=== PATIENT | male | born 1965 | race Caucasian/White ===

== ENCOUNTER 2016-11-04 17:38 | Emergency (ER) | payer OTHER ==
[~2016-11-04] VITALS: Ht 182.9 cm; Wt 125.0 kg
[2016-11-04 17:55] VITALS: BP 141/72; PULSE 79; RESP 16; O2SAT 94
[2016-11-04 21:07] VITALS: BP 128/78; PULSE 70; O2SAT 93
--- NOTE | 2016-11-04 21:52 | ED.REPORT ---
HPI-Back Pain 40 and Over Date of Service Nov 04, 2016 ED Provider: Neil Rodríguez MD Patient is a 50 year old male with a history of scoliosis, PTSD and depression presents the ED with lower left back pain rated 9/10 that began at 0516 after he had lifted his right leg to get into his truck. He describes the initial pain as originating in his right thigh and shooting up into his spine. The pain is now located only in his back with no radiation. He admits to exacerbated of pain with movement as well as sitting for extended periods and has taken Tylenol for the pain. The patient denies fever, numbness/weakness and any bowel or urinary dysfunction. pt has a history of similar which improves with physical therapy and time. Nursing Notes Stated Complaint: LOWER BACK PAIN Chief Complaint: Back Pain or Injury Nursing Notes Reviewed: Yes Allergies: Coded Allergies: No Known Allergies (Unverified , 11/04/16) Scheduled PRN Cyclobenzaprine (Cyclobenzaprine) 10 Mg Tablet 10 MG PO TID PRN PRN Spasm Ibuprofen (Ibuprofen) 600 Mg Tablet 600 MG PO QID PRN PRN For Pain General Time Seen by MD: 21:16 Chief Complaint Back pain Hx Obtained From: Patient Arrived By: Walk-in Sudden in Onset?: Yes Onset Occurred: 13 - 16 hours ago Symptom Duration: Since onset Caused by: Bending Location: : Perispinal lumbar Quality: Painful Severity: Maximum: Moderate Associated with: Denies: Incontinence bladder, Incontinence bowel Exacerbated by: Bending, Movement, Twisting Past Medical History Past Medical History Scoliosis, PTSD, depression Past Surgical History Reports: Appendectomy Smoking History Never Smoker Social History Alcohol Use: Denies alcohol use Drug Use: Denies drug use Other Social History: Good social support Ambulatory Status Independent Review of Systems Constitutional: Denies: Fever Respiratory: Denies: Shortness of breath Cardiovascular: Denies: Chest pain Musculoskeletal: Reports: Back pain Neurologic: Denies: Bladder dysfunction, Bowel dysfunction, Numbness, Weakness Complete sys rev & neg: except as marked. Physical Exam Initial Vital Signs Vital Signs (First) Date Time Temp Pulse Resp B/P Pulse Ox O2 Delivery O2 Flow Rate FiO2 11/04/16 17:55 36.3 79 16 141/72 94 Room Air Initial VS: Reviewed Head / Eyes: Atraumatic, Normocephalic, PERRL ENT: Mucous membranes moist, Conjunctiva normal, No scleral icterus Neck: Supple, Non-tender, Full range of motion Extremities: Vascular intact, Neuro intact, No swelling, No tenderness Skin: Warm, Dry, No cyanosis Psychiatric: Mood/affect normal, Behavior normal, Normal thought content General/Constitutional: Awake, Alert Respiratory / Chest: No respiratory distress Cardiovascular: Peripheral circulation NL Back: Atraumatic Paraspinous spasm R sacrum Neurologic: Oriented X3, Speech NL, No motor deficits, No sensory deficits Re-Eval/Medical Decision Med Decision/Clinical Course Recurrent back pain, no red flags, exam reassuring. Given toradol and flexeril in ED Re-Evaluation/Progress : Re-Evaluation/Progress Note: Discussed plan for discharge and follow up. All questions addressed. Counseled Regarding: Diagnosis, Need for follow-up Discharge & Departure Impression: Primary Impression: Lumbosacral strain Encounter type: initial encounter Qualified Code: S39.012A - Strain of muscle, fascia and tendon of lower back, initial encounter Disposition: Home Discharge Condition All VS Reviewed: Yes Condition: Stable Patient Instructions: Low Back Strain (ED) Additional Instructions: Your emergency room visit today included interview and examination. I do not believe that there is a dangerous cause for your symptoms. You can take Cyclobenzaprine for muscle spasm. Starting tomorrow you can take Ibuprofen 600mg every 6 hours for pain. Ice to sore areas. Activities as tolerated. Contact the [facility] for follow up. Return to the ER for loss of bowel or bladder function, numbness or weakness. Referrals: [facility] (PCP) Scribe Attestation Portions of this note were transcribed by Sumaya Johns. I, ( Dr. Rodríguez) personally performed the history, physical exam and medical decision- making; I reviewed and confirmed the accuracy of the information in the transcribed note. Signed by: Sumaya Johns. Scribe, 11/04/2016 , [id number] copies to: [facility] Neil Rodríguez MD Nov 04, 2016 21:52 Sumaya Toth Nov 04, 2016 22:03 Ricardo Johns Nov 04, 2016 22:20
[2016-11-04] MEDS ORDERED: CYCL10TA9 PO (22:28)
[2016-11-04] MEDS ORDERED: IBUP-1827 PO (22:28)
[2016-11-04 23:18] VITALS: BP 128/84; PULSE 74; O2SAT 93
== END 2016-11-04 23:19 | disposition home or self-care (01) ==
LOC: SED 17:38
DX: S39.012A Strain of muscle, fascia and tendon of lower back, initial encounter (principal); X50.0XXA Overexertion from strenuous movement or load, initial encounter; Y93.89 Activity, other specified; Y92.9 Unspecified place or not applicable; Y99.8 Other external cause status; F43.10 Post-traumatic stress disorder, unspecified
CPT/HCPCS: 96372; 99283; J1885